=== PATIENT | male | born 1935 | race Caucasian/White ===

== ENCOUNTER 2016-11-27 09:15 | Outpatient (RCR) | payer MEDICARE, BC ==
[~2016-11-27 09:15] MED LIST: ACETAMINOPHEN500 MG PO; ALLOPURINOL100 MG PO; ALPHAMIN1000 MCG/M IM; ASPIR-LOW81 MG PO; ASPIR-LOX325 MG PO; ASPIRIN 32325 MG/TAB PO; ASPIRIN E.C. 8181 MG PO; B-12 IJ; BETAPACE 80MG80 MG PO; CALAN SR120 MG PO; CARTIA XT240 MG PO; COLESTID 1GM1 G PO; COUMADIN 4MG4 MG/TAB PO; D3-5050000 IU PO; FISH OIL CONC1000 MG PO; FISH OIL1000 MG PO; GEMCOR600 MG PO; GLUCOPHAGE500 MG/TAB PO; HYOSCYAMINE; LOPERAMIDE2 MG PO; LOPID 600M600 MG/TAB PO; LORTAB 5/500 501 TAB PO; METFORMIN500 MG PO; NORCO 325 MG-51 TAB PO; OMEGA 31000 MG PO; PENTASA PO; PRILOSEC 20MG20 MG PO; TAMIFLU 75MG75 MG PO; TIAZAC120 MG PO; TIKOSYN; TYLENOL 325MG325 MG PO; VERAPAMIL PO; VITAMIN B-12 SQ; VITAMIN B1100 MCG/ML IM; VITAMIN D32000 I1 PO
== END 2016-11-30 | disposition still patient (30) ==
LOC: WSPT
DX: R42 Dizziness and giddiness (principal)
CPT/HCPCS: G8978-GP; G8979-GP; G8980-GP

== ENCOUNTER 2016-12-01 17:27 | Observation (INO) | payer MEDICARE, BC ==
[~2016-12-01] VITALS: Ht 182.9 cm; Wt 64.5 kg
[2016-12-01 17:43] VITALS: BP 138/74; PULSE 79; TEMP 97.3
[2016-12-01 22:38] VITALS: BP 118/70; PULSE 76; TEMP 97.3
[2016-12-02] VITALS (10 sets, daily range): BP systolic 101–151; BP diastolic 59–84; PULSE 60–81; TEMP 97.6–98.5
[2016-12-02] MEDS ORDERED: PENTASA250 MG PO ×4 (10:55→12:21)
[2016-12-02] MEDS ORDERED: NEURONTIN300 MG/CAP PO (10:57)
[2016-12-02] MEDS ORDERED: VITAMIN C500 MG PO (10:59)
[2016-12-02] MEDS ORDERED: IRON TABLETS325 MG PO (10:59)
[2016-12-02] MEDS ORDERED: NORCO 325 MG-51 TAB PO (12:19)
[2016-12-02] MEDS ORDERED: VITAMIN D 1001000 IU PO (12:23)
[2017-04-19] VITALS (606 sets, daily range): O2SAT 58–100
[2017-04-20] VITALS (269 sets, daily range): O2SAT 63–100
== END 2016-12-02 19:25 | disposition home or self-care (01) ==
LOC: SDCO 17:27 → SURG 17:28 → SDCO 17:55 → SURG 17:56
DX: N20.1 Calculus of ureter (principal); E11.40 Type 2 diabetes mellitus with diabetic neuropathy, unspecified; K50.90 Crohn's disease, unspecified, without complications; Z87.891 Personal history of nicotine dependence
CPT/HCPCS: C1769; C2617; G0378; G0379; J0690; J1170; J2405; J2704; J3010; J7030; Q9967

== ENCOUNTER 2017-04-17 11:48 | Inpatient (IN) | payer MEDICARE, BC ==
[~2017-04-17] VITALS: Ht 182.9 cm; Wt 68.0 kg
[~2017-04-17 11:48] MED LIST changes: +IRON TABLETS325 MG PO; +NEURONTIN300 MG/CAP PO; +PENTASA250 MG PO; +VITAMIN C500 MG PO; +VITAMIN D 1001000 IU PO
[2017-04-17] MEDS ORDERED: GLUCOPHAGE1000 MG PO (12:20)
[2017-04-17 12:54] LABS: BASO % 0.1 % (0.0-2.0); EOS % 0.1 % (0-4.0); GRAN # 6.8 (1.4-6.5); GRAN % 80.8 % (42.2-75.2); LYMPH # 0.5 (1.2-3.4); LYMPH % 6.5 % (20.0-51.0); MEAN CELL VOLUME 82 fl (80.0-100.0); MEAN CORPUSCULAR HGB CONC 34 g/dl (33.0-37.0); MEAN PLATELET VOLUME 11.1 fl (7.4-10.4); PLATELET COUNT 223 K/mm3 (130-400); RED BLOOD COUNT 3.83 M/mm3 (4.20-5.60); REDCELL DISTRIBUTION WIDTH-CV 14.2 % (11.5-14.5); WHITE BLOOD COUNT 8.4 K/mm3 (4.8-10.8)
[2017-04-17 12:55] LABS: HEMATOCRIT 31.2 % (42.0-52.0); HEMOGLOBIN 10.6 g/dl (13.5-18.0); MEAN CORPUSCULAR HEMOGLOBIN 28 pg (27.0-31.0)
[2017-04-17 13:13] LABS: ALBUMIN 4.1 gm/dL (3.5-5.0); BILIRUBIN,TOTAL 0.9 mg/dL (0.0-1.0); C-REACTIVE PROTEIN 8.5 mg/dL (0.0-0.9); CALCIUM 9.1 mg/dL (8.4-10.2); CREATININE, serum 0.93 mg/dL (0.66-1.25); POTASSIUM 3.6 mmol/L (3.4-5.0); TOTAL PROTEIN 7.4 gm/dL (6.4-8.2)
[2017-04-17 13:20] LABS: TROPONIN-I 0.012 ng/mL (0.000-0.034)
[2017-04-17 13:32] LABS: PH 5 (5-8); SQUAMOUS EPITHELIAL 0-2 /hpf; URINE APPEARANCE Clear; URINE BACTERIA None Seen /hpf; URINE BILIRUBIN Negative (NEGATIVE); URINE BLOOD 2+ (NEGATIVE); URINE COLOR Yellow; URINE GLUCOSE Negative (NEGATIVE); URINE KETONE Trace (NEGATIVE); URINE RBC >50 /hpf; URINE UROBILINOGEN Negative (NEGATIVE); URINE WBC 0-2 /hpf
[2017-04-17 17:51] VITALS: BP 138/73; PULSE 116; TEMP 98.9
[2017-04-17 20:22] VITALS: BP 127/60; PULSE 101; TEMP 98.3
[2017-04-18 00:05] VITALS: BP 113/68; PULSE 108; TEMP 99.5
[2017-04-18 05:06] VITALS: BP 119/70; PULSE 105; TEMP 98.5
[2017-04-18 09:00] VITALS: BP 116/49; PULSE 110; TEMP 99.8
[2017-04-18 12:21] VITALS: BP 92/59; PULSE 99; TEMP 99.1
[2017-04-18 16:27] VITALS: BP 118/90; PULSE 102; TEMP 101; TEMP 98.9
[2017-04-18 23:08] LABS: ARTERIAL BLD GAS TCO2 CT 17.8; ARTERIAL BLOOD GAS BASE EXCESS -3.4 (-2-2); ARTERIAL BLOOD GAS HCO3 17.2 meq/L (22-26); ARTERIAL BLOOD GAS PHT 7.53 C (7.35-7.45); ARTERIAL BLOOD GAS PO2 61.8 mmHg (80-100); ARTERIAL BLOOD GAS PO2T 61.8 (80-100); ARTERIAL BLOOD GAS pH 7.53 (7.35-7.45); OXYHEMOGLOBIN 92.2 %
[2017-04-18 23:09] LABS: ALLEN TEST YES; ATS? YES
[2017-04-18 23:10] LABS: ALLENS TEST RESULT PASS
[2017-04-19] VITALS (8 sets, daily range): BP systolic 92–123; BP diastolic 60–76; PULSE 96–118; TEMP 97.7–100.6
[2017-04-19 00:27] LABS: BASO % 0.5 % (0.0-2.0); EOS % 0.2 % (0-4.0); GRAN # 6.5 (1.4-6.5); GRAN % 79.8 % (42.2-75.2); LYMPH # 0.5 (1.2-3.4); LYMPH % 6.6 % (20.0-51.0); MEAN CELL VOLUME 81 fl (80.0-100.0); MEAN CORPUSCULAR HGB CONC 34 g/dl (33.0-37.0); MEAN PLATELET VOLUME 10.8 fl (7.4-10.4); MONO % 12.5 % (1.7-9.3); PLATELET COUNT 216 K/mm3 (130-400); RED BLOOD COUNT 3.45 M/mm3 (4.20-5.60); REDCELL DISTRIBUTION WIDTH-CV 14.1 % (11.5-14.5); WHITE BLOOD COUNT 8.2 K/mm3 (4.8-10.8)
[2017-04-19 00:28] LABS: HEMATOCRIT 27.8 % (42.0-52.0); HEMOGLOBIN 9.4 g/dl (13.5-18.0); MEAN CORPUSCULAR HEMOGLOBIN 27 pg (27.0-31.0)
[2017-04-19 00:36] LABS: CALCIUM 8.4 mg/dL (8.4-10.2); CREATININE, serum 0.9 mg/dL (0.66-1.25)
[2017-04-19 00:38] LABS: POTASSIUM 2.6 mmol/L (3.4-5.0)
[2017-04-19 01:10] LABS: MAGNESIUM 1.6 mg/dL (1.6-2.3)
[2017-04-19 06:25] LABS: ARTERIAL BLD GAS O2 SATURATION 96.4 % (92-100); ARTERIAL BLOOD GAS BASE EXCESS -4.4 (-2-2); ARTERIAL BLOOD GAS HCO3 17.8 meq/L (22-26); ARTERIAL BLOOD GAS PO2 88.2 mmHg (80-100); ARTERIAL BLOOD GAS pH 7.46 (7.35-7.45)
[2017-04-19 06:34] LABS: CREATININE, serum 0.77 mg/dL (0.66-1.25); POTASSIUM 3.2 mmol/L (3.4-5.0)
[2017-04-19 08:05] LABS: MAGNESIUM 1.9 mg/dL (1.6-2.3)
[2017-04-19 14:09] LABS: PROLACTIN 7.3 ng/mL (3.7-17.9)
[2017-04-19 14:46] LABS: C-REACTIVE PROTEIN 27.7 mg/dL (0.0-0.9)
[2017-04-20 04:13] VITALS: BP 88/57; PULSE 90; TEMP 99.3
[2017-04-20 05:28] LABS: BASO % 0.1 % (0.0-2.0); EOS % 0.3 % (0-4.0); GRAN # 6.6 (1.4-6.5); GRAN % 83.8 % (42.2-75.2); LYMPH # 0.5 (1.2-3.4); LYMPH % 5.7 % (20.0-51.0); MEAN CELL VOLUME 80 fl (80.0-100.0); MEAN CORPUSCULAR HGB CONC 35 g/dl (33.0-37.0); MEAN PLATELET VOLUME 10.7 fl (7.4-10.4); MONO # 0.7 (0.1-0.6); MONO % 9.3 % (1.7-9.3); PLATELET COUNT 215 K/mm3 (130-400); RED BLOOD COUNT 2.85 M/mm3 (4.20-5.60); REDCELL DISTRIBUTION WIDTH-CV 14.2 % (11.5-14.5); WHITE BLOOD COUNT 7.9 K/mm3 (4.8-10.8)
[2017-04-20 05:45] LABS: HEMATOCRIT 22.7 % (42.0-52.0); HEMOGLOBIN 7.9 g/dl (13.5-18.0); MEAN CORPUSCULAR HEMOGLOBIN 28 pg (27.0-31.0)
[2017-04-20 05:50] LABS: CREATININE, serum 0.79 mg/dL (0.66-1.25); MAGNESIUM 1.6 mg/dL (1.6-2.3); PHOSPHOROUS 2.2 mg/dL (2.5-4.5); POTASSIUM 3.2 mmol/L (3.4-5.0)
[2017-04-20 07:54] LABS: ARTERIAL BLD GAS O2 SATURATION 86.1 % (92-100); ARTERIAL BLD GAS TCO2 CT 19.1; ARTERIAL BLOOD GAS HCO3 18.3 meq/L (22-26); ARTERIAL BLOOD GAS PO2 46.4 mmHg (80-100)
[2017-04-20 07:55] LABS: ALLEN TEST YES; ALLENS TEST RESULT PASS; ATS? YES
[2017-04-20 08:00] VITALS: BP 118/69; PULSE 107; TEMP 98
[2017-04-20 09:41] LABS: ARTERIAL BLD GAS O2 SATURATION 91.5 % (92-100); ARTERIAL BLD GAS TCO2 CT 19.8; ARTERIAL BLOOD GAS BASE EXCESS -3.8 (-2-2); ARTERIAL BLOOD GAS PO2 61.2 mmHg (80-100); ARTERIAL BLOOD GAS pH 7.47 (7.35-7.45); OXYHEMOGLOBIN 90.5 %
[2017-04-20 09:42] LABS: ALLEN TEST NO; ATS? YES
[2017-04-20 10:10] LABS: HEMATOCRIT 25.5 % (42.0-52.0); HEMOGLOBIN 8.5 g/dl (13.5-18.0)
== END 2017-04-20 14:05 | disposition expired | DRG 871 ==
LOC: COL.ER 11:48 → MEDICAL 15:35 → ICU 04-19 00:02
PROVIDERS: Emergency Medicine; Internal Medicine; Internal Medicine Pulmonary Disease; Nurse Practitioner Family
DX: A41.9 Sepsis, unspecified organism (principal); J18.9 Pneumonia, unspecified organism; J96.01 Acute respiratory failure with hypoxia; K50.90 Crohn's disease, unspecified, without complications; E87.2 Acidosis; Z66 Do not resuscitate; E11.9 Type 2 diabetes mellitus without complications; Z51.5 Encounter for palliative care; I10 Essential (primary) hypertension; J44.9 Chronic obstructive pulmonary disease, unspecified; Z87.891 Personal history of nicotine dependence; I48.91 Unspecified atrial fibrillation; E87.6 Hypokalemia
CPT/HCPCS: 99222-AI; 99232-AI; 99233-AI; A4315; J0456; J0696; J1650; J1815; J1956; J2060; J2270; J2405; J2543; J3370; J3475; J3480; J7030; J7050; J7120; Q9967